=== PATIENT | male | born 1960 | race Caucasian/White ===

== ENCOUNTER → 2023-05-14 06:32 | Day surgery (SDC) | payer OTHER, SELFPAY | LOC: GI 06:32 | PROVIDERS: ATTENDING PHYSICIAN Internal Medicine | DX: Z12.11 Encounter for screening for malignant neoplasm of colon (principal); K64.8 Other hemorrhoids; D12.5 Benign neoplasm of sigmoid colon; D12.2 Benign neoplasm of ascending colon; D12.3 Benign neoplasm of transverse colon; D12.0 Benign neoplasm of cecum; K62.1 Rectal polyp; D12.1 Benign neoplasm of appendix | CPT/HCPCS: 45385; 45380; 88305 ==